=== PATIENT | male | born 1960 | race Caucasian/White ===

== ENCOUNTER 2019-03-11 16:32 | Inpatient (IN) ==
[2019-03-11 17:06] LABS: BASO# 0.02 X1000 (0.0-0.2); BASO% 0.2 % (0.0-0.8); EOS# 0.02 X1000 (0.0-0.7); EOS% 0.2 % (0.0-10.0); HEMATOCRIT 48.2 % (42.0-52.0); HEMOGLOBIN 15.4 g/dL (14.0-18.0); IMM GRAN# 0.03 X1000 (0.0-0.04); IMM GRAN% 0.2 % (0.0-0.5); LYMPH# 1.73 X1000 (1.2-3.4); LYMPH% 14.4 % (20.5-51.1); MCH 29.7 PG (27-31); MCV 93.1 FL (81-99); MONO# 1.29 X1000 (0.11-0.59); MONO% 10.7 % (1.7-9.3); MPV 11.4 FL (7.4-10.4); NEUT# 8.92 X1000 (1.4-6.5); NEUT% 74.3 % (42.2-75.2); PLT 208 X1000 (130-400); RBC 5.18 XMIL (4.7-6.1); RDW 13.4 % (11.5-14.5); WBC 12.01 X1000 (4.8-10.8)
[2019-03-11 17:12] LABS: I-STAT BE 1 mmoll (-2-3); I-STAT GLUCOSE 98 mg/dL (70-105); I-STAT HEMOGLOBIN 15.6 g/dL (11.5-17.5); I-STAT K 3.4 mmoll (3.5-4.9); I-STAT SODIUM 133 mmoll (138-146); I-STAT TCO2 25 mmoll (23-27); I-STAT pH 7.506 (7.350-7.450)
[2019-03-11 17:15] LABS: HCO3-(ACT) 23.7 mmoll (20.0-26.0); PCO2(98.6) 30 mmHg (35-45); SAMPLE BLOOD; pH(98.6) 7.51 (7.35-7.45)
[2019-03-11 17:16] LABS: ALLEN TEST YES; BLOOD TYPE MIXED ART/VENOUS; MODALITY ROOM AIR; THB 15.6 g/dL (11.5-17.4)
[2019-03-11 17:17] LABS: PO2(98.6) 38 mmHg (60-100)
[2019-03-11 17:18] LABS: AGAP 16; ALBUMIN 4.5 g/dL (3.5-5.0); ALKALINE PHOSPHATASE 79 U/L (32-122); BUN 13 mg/dL (8-22); CALCIUM 9.7 mg/dL (8.8-10.2); CHLORIDE 101 mmol/L (98-107); CK PROFILE 94 U/L (24-204); COSMO 277; CREATININE 0.7 mg/dL (0.7-1.2); ESTIMATED GFR > 60; GLUCOSE 123 mg/dL (70-104); GOT 16 U/L (10-34); GPT 15 U/L (10-44); POTASSIUM 3.7 mmol/L (3.5-5.1); SODIUM 138 mmol/L (136-145); TCO2 22 mmol/L (25-35); TOTAL PROTEIN 6.9 g/dL (6.3-8.3)
[2019-03-11 17:23] LABS: INR 0.9; PROTIME 12.6 Seconds (11.0-16.0)
--- NOTE | 2019-03-11 17:53 | Diag Imaging Result Doc PS360 ---
CHEST-2 VIEWS - 03/11/2019 INDICATION: sob COMPARISON: 03/09/2019 FINDINGS: Stable COPD. No infiltrates or edema. Heart size remains normal. No pneumothorax or pleural effusion. IMPRESSION: COPD. Electronically signed by Juan Hughes 03/11/2019 5:51 PM
[2019-03-11] MEDS ORDERED: SOLU-MEDROL IV ONE (18:03)
[2019-03-11] MEDS ORDERED: DUONEB (A & A) INH ONE (18:03)
[2019-03-11] MEDS ORDERED: PULMICORT INH ONE (18:03)
[2019-03-11] MEDS ORDERED: ROCEPHIN 1 GM in NS 50 ML IV ONE (18:04)
[2019-03-11] MEDS ORDERED: NICODERM PATCH TD ONE (18:38)
--- NOTE | 2019-03-11 18:52 | EKG Report ---
Test Performed on : 03/11/2019 6:44:47 PM Test Reason : sob Blood Pressure : / mmHG Vent. Rate : 103 BPM Atrial Rate : 103 BPM P-R Int : 126 ms QRS Dur : 098 ms QT Int : 334 ms P-R-T Axes : 115 085 045 degrees QTc Int : 437 ms Sinus tachycardia. Incomplete right bundle branch block Nonspecific ST abnormality Abnormal ECG When compared with ECG of 09-MAR-2019 12:32, (Unconfirmed) No significant change was found Unconfirmed Result
--- NOTE | 2019-03-11 18:56 | PROVIDER DOCUMENTATION ---
This chart was entered by Shivani Jean Scribe, acting as scribe for Sarah Villagomez MD. HPI-Respiratory General - General Source: patient - History of Present Illness-Resp Severity in ED: reports: moderate Onset/Duration: reports: gradual, 2 days ago Timing: reports: still present, constant, getting worse Cough Quality/Degree: reports: severe Episode Frequency: frequent episodes (seen in ED several times) Current Respiratory Medication Therapy: Initiated albuterol/atrovent inhale Modifying Factors: worse with: exertion, coughing Associated Symptoms: reports: cough, fever/chills, muscle/bodyaches, shortness of breath, wheezing Similar Symptoms Previously?: Yes (2 days ago in ED ) Recently seen or treated by another doctor?: Yes <Sarah Villagomez - Last Filed: 03/11/19 18:56> <Ha Lam - Last Filed: 03/11/19 19:27> - General Chief Complaint: Shortness of Breath Stated Complaint: RECHECK - COPD Time Seen by Provider: 03/11/19 16:41 Allergies/Adverse Reactions: Patient Allergies Allergy/AdvReac Type Severity Reaction Status Date / Time No Known Allergies Allergy Verified 03/11/19 16:54 Home Medications: Home Medication List Medication Instructions Recorded Confirmed Last Taken Type Albuterol Sulfate Inhaler 2 puff INH Q6H PRN PRN #1 inhaler 06/07/17 03/11/19 12/08/18 Rx [Ventolin Hfa] Aspirin 325 mg PO DAILY 03/09/19 03/11/19 03/11/19 History - History of Present Illness-Resp Nature of Presenting Problem: Pt is a 58 yowm who came into the Ed with SOB, fever and chills. Pt was seen in the ED Friday, did not want to be admitted but now symptoms have gotten worse and he feels he needs to be admitted. Pt is alert, breathing rapidly and paco ears in mild distress. (Sarah Villagomez) Review of Systems - Adult - REVIEW OF SYSTEMS - ADULT Constitutional: reports: no symptoms reported, chills, fever Eyes: reports: no symptoms reported Ears, Nose, Mouth & Throat: reports: no symptoms reported Cardiovascular: reports: no symptoms reported, see HPI. denies: syncope Respiratory: reports: no symptoms reported, cough, shortness of breath, wheezing , other (rapid breathing) Gastrointestinal: denies: abdominal pain, nausea, vomiting Genitourinary: reports: no symptoms reported Musculoskeletal: reports: no symptoms reported Integumentary: reports: no symptoms reported Neurological: denies: dizziness/vertigo, syncope Psychiatric: reports: no symptoms reported Endocrine: reports: no symptoms reported Hematologic/Lymphatic: reports: no symptoms reported Allergic/Immunologic: reports: no symptoms reported All Other Systems: Reviewed and Negative <Sarah Villagomez - Last Filed: 03/11/19 18:56> Past History - Adult - PAST MEDICAL HISTORY-ADULT Review of Records: reports: Old Records Reviewed, Nursing Assessment Review, Medications Reviewed, Social history reviewed & non-contributory. Major Childhood Illnesses: reports: denies history Cardiovascular: denies: A-Fib, angina, aortic disease, blood clots, CAD, CHF, HTN, heart valve problem, hyperlipidemia, [place], PAD, palpitations, pacemaker Respiratory: reports: asthma, COPD Gastrointestinal: reports: GI bleed. denies: diverticulosis, GERD, ulcer Genitourinary: reports: denies history Musculoskeletal: reports: neck/back injury Neurological: denies: CVA, dementia Psychiatric: reports: denies history Endocrine/Immune: reports: denies history Other Conditions: reports: denies history - PRIOR SURGERIES/PROCEDURES Surgical/Procedure History: reports: none - IMMUNIZATION STATUS Childhood Immunizations: See Nurse Assessment Flu Vaccine: See Nurse Assessment - FAMILY HISTORY Family History: CAD under 55yo - SOCIAL HISTORY Smoking: cigarettes, greater than 1 pack/day Provider spent 3-5 mins advising pt. on dangers of tobacco.: Discussed manners to quit use, and f/u contacts for add'l counseling. Substance Use: denies Living Situation: alone <Sarah Villagomez - Last Filed: 03/11/19 18:56> Physical Exam-General - PHYSICAL EXAM-ADULT Initial Vital Signs Reviewed: Yes (HR 112 O2 93 RA) - CONSTITUTIONAL General Appearance: alert, mild distress - EYES Eyes: PERRL/EOMI - HEAD, EARS, NOSE, MOUTH & THROAT HENMT: moist mucous membranes - NECK Neck: full range of motion - RESPIRATORY Respiratory: respiratory distress, accessory muscle use, wheezing, retractions, increased rate - CARDIOVASCULAR Cardiovascular: normal peripheral pulses, tachycardia - GASTROINTESTINAL (ABDOMEN) Abdominal Exam: non tender, soft - MUSCULOSKELETAL Back Exam: no CVA tenderness, no vertebral tenderness Extremity: normal range of motion, normal gait - SKIN Integumentary: normal turgor, warm/dry - PSYCHIATRIC Psych/Mental Status: normal mood/affect, normal thought content, normal thought process, oriented x 3 <HernandoSarah - Last Filed: 03/11/19 18:56> Progress - PLAN OF CARE/RESULTS Result Diagrams: 03/11/19 16:45 03/11/19 16:45 - CHANGE OF SHIFT REPORT (ED Provider) 1 Report Given and Care Transferred to:: Dr Lam Time of Transfer: 18:56 Items Pending: Other (hospitalist to call back) <HernandoAnastacy Escobedo - Last Filed: 03/11/19 18:56> - PLAN OF CARE/RESULTS Result Diagrams: 03/11/19 16:45 03/11/19 16:45 - REASSESSMENT Reassessment #1 Time Reassessed: 09:15 Status: unchanged Reassessment Comment: continues to wheeze - XRAY 1 XRAY Study: Chest XRAY Interpretation: COPD - CONSULTS/PCP/HOSPITALIST Notification #1 *Consult/PCP/Hospitalist*: Dr. Blankenship, Hospitalist building construction foreman Time Discussed: 19:25 Consult Disposition: Admit <Ha Lam - Last Filed: 03/11/19 19:27> - PLAN OF CARE/RESULTS Progress/Plan/Lab Results: Vital Signs - 8 hr 03/11/19 16:35 03/11/19 17:00 03/11/19 18:03 Temperature 98.7 F Pulse Rate 112 H 98 H Respiratory Rate 20 29 H Blood Pressure 162/83 144/83 O2 Sat by Pulse Oximetry 93 L 95 96 03/11/19 18:23 Temperature Pulse Rate 95 H Respiratory Rate 26 H Blood Pressure O2 Sat by Pulse Oximetry 96 03/11/19 16:53 - Final Sputum Laboratory Results - last 24 hr 03/11/19 03/11/19 03/11/19 16:40 16:45 16:45 WBC 12.01 H RBC 5.18 Hgb 15.4 Hct 48.2 MCV 93.1 MCH 29.7 MCHC 32.0 L RDW Std Deviation 13.4 Plt Count 208 MPV 11.4 H Immature Gran % (Auto) 0.2 Neut % (Auto) 74.3 Lymph % (Auto) 14.4 L Lares % (Auto) 10.7 H Eos % (Auto) 0.2 Baso % (Auto) 0.2 Immature Gran # (Auto) 0.03 Neut # (Auto) 8.92 H Lymph # (Auto) 1.73 Lares # (Auto) 1.29 H Eos # (Auto) 0.02 Baso # (Auto) 0.02 PT INR PTT (Actin FS) Specimen Type Sample Site POC pH pH POC pCO2 pCO2 POC pO2 pO2 POC HCO3 HCO3 POC Total CO2 Base Excess POC Base Excess POC O2 Saturation ABG O2 Saturation Carlos Test Total Hemoglobin POC Hemoglobin POC Hematocrit POC Sodium POC Potassium POC Glucose POC Ioniz Calcium Blood Gas Modality FiO2 % Sodium 138 Potassium 3.7 Chloride 101 Carbon Dioxide 22 L Anion Gap 16 BUN 13 Creatinine 0.7 Estimated GFR/1.73 m2 > 60 BUN/Creatinine Ratio 19 Glucose 123 H Calculated Osmolality 277 Calcium 9.7 Total Bilirubin 1.30 H AST 16 ALT 15 Alkaline Phosphatase 79 Creatine Kinase 94 Troponin T Liv-V-Amlcdaxowls Pept Total Protein 6.9 Albumin 4.5 Globulin 2.0 Albumin/Globulin Ratio 2.0 Plasma Lactate 1.7 03/11/19 03/11/19 03/11/19 16:45 16:45 16:45 WBC RBC Hgb Hct MCV MCH MCHC RDW Std Deviation Plt Count MPV Immature Gran % (Auto) Neut % (Auto) Lymph % (Auto) Lares % (Auto) Eos % (Auto) Baso % (Auto) Immature Gran # (Auto) Neut # (Auto) Lymph # (Auto) Lares # (Auto) Eos # (Auto) Baso # (Auto) PT 12.6 INR 0.90 PTT (Actin FS) 28.0 Specimen Type Sample Site POC pH pH POC pCO2 pCO2 POC pO2 pO2 POC HCO3 HCO3 POC Total CO2 Base Excess POC Base Excess POC O2 Saturation ABG O2 Saturation Carlos Test Total Hemoglobin POC Hemoglobin POC Hematocrit POC Sodium POC Potassium POC Glucose POC Ioniz Calcium Blood Gas Modality FiO2 % Sodium Potassium Chloride Carbon Dioxide Anion Gap BUN Creatinine Estimated GFR/1.73 m2 BUN/Creatinine Ratio Glucose Calculated Osmolality Calcium Total Bilirubin AST ALT Alkaline Phosphatase Creatine Kinase Troponin T < 0.010 Trg-[id number]-Gmcvvrdqwmx Pept 86 Total Protein Albumin Globulin Albumin/Globulin Ratio Plasma Lactate 03/11/19 03/11/19 16:55 17:07 WBC RBC Hgb Hct MCV MCH MCHC RDW Std Deviation Plt Count MPV Immature Gran % (Auto) Neut % (Auto) Lymph % (Auto) Lares % (Auto) Eos % (Auto) Baso % (Auto) Immature Gran # (Auto) Neut # (Auto) Lymph # (Auto) Lares # (Auto) Eos # (Auto) Baso # (Auto) PT INR PTT (Actin FS) Specimen Type MIXED ART/VENOUS Sample Site L RADIAL POC pH 7.506 H pH 7.51 H POC pCO2 29.9 L pCO2 30 L POC pO2 38.0 L* pO2 38 L* POC HCO3 23.7 HCO3 23.7 POC Total CO2 25 Base Excess 1.0 POC Base Excess 1 POC O2 Saturation 79 L ABG O2 Saturation 79.0 L Carlos Test YES Total Hemoglobin 15.6 POC Hemoglobin 15.6 POC Hematocrit 46 POC Sodium 133 L POC Potassium 3.4 L POC Glucose 98 POC Ioniz Calcium 1.25 Blood Gas Modality ROOM AIR FiO2 % 21.0 Sodium Potassium Chloride Carbon Dioxide Anion Gap BUN Creatinine Estimated GFR/1.73 m2 BUN/Creatinine Ratio Glucose Calculated Osmolality Calcium Total Bilirubin AST ALT Alkaline Phosphatase Creatine Kinase Troponin T Pdz-E-Jkehtpiypyr Pept Total Protein Albumin Globulin Albumin/Globulin Ratio Plasma Lactate Orders Category Date Time Status Cardiac Monitoring DIRECTED Care 03/11/19 16:47 Active Notify MD of + Sepsis Screen NOW Care 03/11/19 16:49 Active Notify Physician As Ordered Care 03/11/19 16:49 Active Oxygen Therapy- ED Nursing DIRECTED Care 03/11/19 16:47 Active Saline Loc NOW Care 03/11/19 16:47 Active CHEST-2 VIEWS [RAD] Stat Exams 03/11/19 16:47 Completed ABG [RESP] Routine Lab 03/11/19 16:55 Completed BLOOD CULTURE [BLDCUL] Stat Lab 03/11/19 16:45 Ordered CBC WITH ELECTRONIC DIFF [HEME] Stat Lab 03/11/19 16:45 Completed CK PROFILE [SP CHEM] Stat Lab 03/11/19 16:45 Completed COMPREHENSIVE METABOLIC PANEL [CHEM] Stat Lab 03/11/19 16:45 Completed I-STAT 8 [RESP] Routine Lab 03/11/19 17:07 Completed LACTATE, PLASMA [CHEM] Lab 03/11/19 16:40 Completed LACTATE, PLASMA [CHEM] Lab 03/11/19 20:00 Uncollected LACTATE, PLASMA [CHEM] Lab 03/11/19 23:00 Uncollected PRO B-NATRIURETIC PEPTIDE Stat Lab 03/11/19 16:45 Completed PROTIME WITH INR [COAG] Stat Lab 03/11/19 16:45 Completed PTT [COAG] Stat Lab 03/11/19 16:45 Completed SPUTUM CULTURE WITH GRAM STAIN [RM] Routine Lab 03/11/19 16:53 Results TROPONIN T Stat Lab 03/11/19 16:45 Completed Albuterol 2.5MG/Ipratrop 0.5MG [Duoneb (A & A)] Med 03/11/19 18:03 Discontinued 3 ml INH NOW ONE Budesonide [Pulmicort] Med 03/11/19 18:03 Discontinued 0.5 mg INH NOW ONE CefTRIAXONE [Rocephin] 1 gm Med 03/11/19 18:04 Discontinued 0.9% Sodium Chloride Inj [Ns] 50 ml IV NOW Methylprednisolone Sod Succ [Solu-Medrol] Med 03/11/19 18:03 Discontinued 125 mg IV NOW ONE Nicotine Patch [Nicoderm Patch] Med 03/11/19 18:38 Discontinued 21 mg TD NOW ONE Aerosol Treatments Routine Oth 03/11/19 18:03 Completed Aerosol Treatments Routine Oth 03/11/19 18:03 Completed Aerosol Treatments Stat Oth 03/11/19 18:03 Completed Aerosol Treatments Stat Oth 03/11/19 18:03 Completed CP/SOB/Palp >45 yrs of Age Stat Oth 03/11/19 16:47 Ordered EKG [EKG] Stat Ther 03/11/19 16:47 Draft Departure - Departure Date of Disposition Decision: 03/11/19 Time of Disposition Decision: 18:47 Certified Medical Emergency: Emergent - Critical Care Note This patient required my direct & personal management of CC.: No <Sarah Villagomez - Last Filed: 03/11/19 18:56> - Departure Certified Medical Emergency: Emergent - Critical Care Note This patient required my direct & personal management of CC.: No <Ha Lam - Last Filed: 03/11/19 19:27> - Departure DIAGNOSIS: COPD exacerbation Disposition: ADMITTED INPATIENT 09 Condition: Good Referrals and Follow-Ups: None,PCP [Primary Care Provider] - Attestation - Physician/ PACO Attestation Patient care was provided by Advanced Practice Provider:: No The physician spent face to face time with patient:: Yes Advanced Practice Provider documentation review:: Supervising physician onsite and consulted in the evaluation and care of this patient. The physician did have a face to face encounter with the patient. <Sarah Villagomez - Last Filed: 03/11/19 18:56> - Physician/ PACO Attestation Patient care was provided by Advanced Practice Provider:: No The physician spent face to face time with patient:: Yes Advanced Practice Provider documentation review:: Supervising physician onsite and consulted in the evaluation and care of this patient. The physician did have a face to face encounter with the patient. <Ha Lam - Last Filed: 03/11/19 19:27> This chart was documented by the indicated scribe, (Shivani Jean, Zakia) and accurately reflects the services I performed and decisions made by Hernando harding Mai Huu, MD, as attested by the provider's signature.
[2019-03-11] MEDS: DUONEB (A & A) INH SCH ×2 (19:56→22:55)
[2019-03-11] MEDS ORDERED: TYLENOL PO PRN (19:57)
[2019-03-11 20:11] LABS: INFLUENZA A NEGATIVE (NEGATIVE); INFLUENZA B NEGATIVE (NEGATIVE)
[2019-03-12] MEDS: SOLU-MEDROL IV SCH ×5 (01:21→23:10)
[2019-03-12] MEDS: DUONEB (A & A) INH SCH ×6 (03:06→22:29)
[2019-03-12] MEDS ORDERED: FLU VACCINE IM ONE (09:00)
[2019-03-12] MEDS ORDERED: PNEUMOVAX 23 IM ONE (09:00)
[2019-03-12 09:50] LABS: BASO# 0.01 X1000 (0.0-0.2); BASO% 0.1 % (0.0-0.8); HEMATOCRIT 46.1 % (42.0-52.0); IMM GRAN# 0.01 X1000 (0.0-0.04); IMM GRAN% 0.1 % (0.0-0.5); LYMPH# 0.98 X1000 (1.2-3.4); LYMPH% 9.6 % (20.5-51.1); MCH 30.1 PG (27-31); MCHC 32.5 g/dL (33-37); MCV 92.6 FL (81-99); MONO# 0.22 X1000 (0.11-0.59); MONO% 2.1 % (1.7-9.3); MPV 11.2 FL (7.4-10.4); NEUT# 9.04 X1000 (1.4-6.5); NEUT% 88.1 % (42.2-75.2); PLT 209 X1000 (130-400); RBC 4.98 XMIL (4.7-6.1); RDW 13.1 % (11.5-14.5); WBC 10.26 X1000 (4.8-10.8)
[2019-03-12] MEDS ORDERED: ZOFRAN IV PRN (09:51)
[2019-03-12] MEDS ORDERED: SALINE LOCK IV FLUID XX ONE (09:51)
[2019-03-12 10:10] LABS: AGAP 14; BUN 17 mg/dL (8-22); CALCIUM 9.5 mg/dL (8.8-10.2); CHLORIDE 100 mmol/L (98-107); COSMO 283; CREATININE 0.6 mg/dL (0.7-1.2); ESTIMATED GFR > 60; GLUCOSE 173 mg/dL (70-104); POTASSIUM 3.6 mmol/L (3.5-5.1); SODIUM 139 mmol/L (136-145); TCO2 25 mmol/L (25-35)
[2019-03-12] MEDS: LOVENOX SUBQ SCH (10:25)
[2019-03-12 10:50] LABS: LYMPHS 11 % (21-51); MONO 3 % (1-9); SEGS 86 % (42-75)
--- NOTE | 2019-03-12 17:32 | HISTORY AND PHYSICAL ---
PRIMARY CARE PROVIDER: No one. CHIEF COMPLAINT: Shortness of breath. HISTORY OF PRESENT ILLNESS: Mr. Ambrocio Jones is a 58-year-old male with a medical history of COPD since 2010. He is not on any home maintenance medications for this. Friday, started having some green phlegm, started developing some chills, wheezing mostly when he was lying down, decreased appetite, decreased sleep. He presented here on Friday with these complaints, was pending admission but requested not to be admitted. He was also hypoxic requiring some oxygen at that time. He had an appointment with [employer] Security on Friday and then re- presented again on night, last night and was admitted overnight. He is here for COPD exacerbation, mild hypoxia with it requiring some oxygen. We will get a sputum if we can if he can cough anything up as he does have complaints of green phlegm. He has expiratory wheezes noted on auscultation. PAST MEDICAL HISTORY: 1. COPD since 2010. No home medications for this. 2. Chronic back pain. 3. Hypertension but no home medications for that either. SURGICAL HISTORY: None. SOCIAL HISTORY: 1 to 2 pack per day smoker since the age of 13. However, he most recently has been trying to wean himself off of it. He is trying to quit smoking, has not drank alcohol in 11 years. Smokes marijuana about once a month. No other illicit drug use. He has a common-law, 2 children. 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 FAMILY HISTORY: Mother no medical conditions. Father had emphysema and liver disease from alcoholism. ALLERGIES: No known drug allergies. HOME MEDICATIONS: 1. He has albuterol or Ventolin as a rescue inhaler 2 puffs inhaled every 6 hours p.r.n. 2. Aspirin 325 mg p.o. daily. REVIEW OF SYSTEMS: Fourteen point review of systems are complete and all were negative except for those mentioned above in the HPI. PHYSICAL EXAMINATION: VITAL SIGNS: Temperature 97.8 degrees, heart rate 88, respiratory rate 18, blood pressure 144/78, O2 saturation 98% on 2 L nasal cannula. GENERAL: Mr. Ambrocio Jones Is a 58-year-old male who is in no acute distress. He is able to answer questions appropriately. HEENT: Atraumatic, normocephalic. Pupils equal, round, reactive to light. Extraocular movements intact. Mucous membranes are moist. A very large delaney. NECK: Trachea midline. CARDIOVASCULAR: S1, S2. Regular rate and rhythm. No rubs, gallops, murmurs. No lower extremity edema. +2 dorsalis and radial pulses. Negative JVD or carotid bruits. PULMONARY: Inspiratory wheezes noted anterior and posteriorly in all lung gil. No accessory muscle use or work of breathing noted. He is tolerating nasal cannula. GASTROINTESTINAL: Abdomen soft, nontender, nondistended. Positive bowel sounds x4. EXTREMITIES: Moves all extremities equally. Full range of motion. NEUROLOGIC: A and O x3. Follows commands. Sensory is intact. SKIN: Warm, dry, intact. LABORATORY DATA: White blood cells 10,000, hemoglobin 15, hematocrit 46, platelet count 209,000. ABGs mixed arterial venous pH 7.51, pCO2 30, PO2 38, bicarbonate 23, base excess 1, saturation 79% this is on room air. Sodium 139, potassium 3.6, BUN 17, creatinine 0.6, glucose 173, calcium 9.5, bilirubin is 1.03, AST 16, ALT 15, CK 94, troponin less than 0.01. ProBNP is 86. Albumin 4.5, lactate 1.0, so it was 1.7 and 0.6 and 1.0. Negative for the flu. IMAGING: Chest x-ray: COPD. EKG: Sinus tachycardia rate 103. ASSESSMENT/PLAN: 1. Chronic obstructive pulmonary disease exacerbation, possible bronchitis or sinus infection. He is coughing up green phlegm and he did have an elevated white blood cell count yesterday on presentation to the ER. He will have antibiotic coverage, IV steroids, nebulizers. He will probably need something more maintenance dosing once he gets discharged, Rocephin is his antibiotic. 2. Hypertension. Blood pressure is okay 130 to 140s. No medications for that at this time. 3. Chronic back pain. He can have Tylenol. 4. Deep venous thrombosis prophylaxis. Lovenox. 5. Tobacco abuse cessation discussed. Nicotine patch started. Dictated by VIRAJ Donaldson for Valentino Do MD cc: VIRAJ Donaldson MD
[2019-03-12] MEDS ORDERED: ROCEPHIN 1 GM in NS 50 ML IV SCH (18:00)
[2019-03-13] MEDS: DUONEB (A & A) INH SCH ×3 (02:50→11:01)
[2019-03-13] MEDS: SOLU-MEDROL IV SCH (05:08)
[2019-03-13 06:04] LABS: BASO# 0.01 X1000 (0.0-0.2); BASO% 0.1 % (0.0-0.8); HEMATOCRIT 46.6 % (42.0-52.0); HEMOGLOBIN 14.9 g/dL (14.0-18.0); IMM GRAN# 0.04 X1000 (0.0-0.04); IMM GRAN% 0.3 % (0.0-0.5); LYMPH# 1.29 X1000 (1.2-3.4); LYMPH% 8.3 % (20.5-51.1); MCH 29.7 PG (27-31); MONO# 0.73 X1000 (0.11-0.59); MONO% 4.7 % (1.7-9.3); MPV 11.7 FL (7.4-10.4); NEUT% 86.6 % (42.2-75.2); PLT 242 X1000 (130-400); RBC 5.01 XMIL (4.7-6.1); RDW 13.2 % (11.5-14.5); WBC 15.57 X1000 (4.8-10.8)
[2019-03-13 06:18] LABS: AGAP 16; BUN 22 mg/dL (8-22); CALCIUM 9.7 mg/dL (8.8-10.2); CHLORIDE 101 mmol/L (98-107); COSMO 284; CREATININE 0.8 mg/dL (0.7-1.2); ESTIMATED GFR > 60; GLUCOSE 184 mg/dL (70-104); POTASSIUM 3.6 mmol/L (3.5-5.1); SODIUM 138 mmol/L (136-145); TCO2 21 mmol/L (25-35)
[2019-03-13] MEDS ORDERED: PROTONIX PO SCH (07:00)
[2019-03-13 07:03] LABS: BANDS 2 % (0-1); LYMPHS 5 % (21-51); MONO 3 % (1-9); SEGS 89 % (42-75)
[2019-03-13 08:08] VITALS: BP 136/77
[2019-03-13] MEDS ORDERED: NICODERM PATCH TD SCH (09:00)
[2019-03-13] MEDS: LOVENOX SUBQ SCH (09:03)
--- NOTE | 2019-03-14 07:35 | DISCHARGE SUMMARY ---
ADMISSION DATE: 03/11/2019 DISCHARGE DATE: 03/13/2019 ADMISSION DIAGNOSES: 1. Chronic obstructive pulmonary disease exacerbation, possible bronchitis or sinus infection. 2. Hypertension. 3. Chronic back pain. 4. Tobacco abuse. DISCHARGE DIAGNOSES: 1. Chronic obstructive pulmonary disease exacerbation, possible bronchitis or sinus infection. 2. Hypertension. 3. Chronic back pain. 4. Tobacco abuse. CONSULTATIONS: None. SURGERIES AND PROCEDURES: None. HOSPITAL COURSE: Mr. Ambrocio Jones is a 58-year-old male with a medical history of COPD since 2010, without any home maintenance medications for this. He started having some green phlegm, started developing chills, wheezing, mostly when he was lying down, decreased appetite, decreased sleep. Presented here on Friday with those complaints, was pending admission, but requested not to be admitted as he had had an appointment the next morning with [facility]. He was noted to be mildly hypoxic during this time, but with breathing treatments, he improved and was discharged. He represented on 03/12/2019, which was Friday, with continued complaints. Actually, I believe that he may have even presented on , but with these same complaints, he was admitted for COPD exacerbation, mild hypoxia with requiring some oxygen. Nebulizers initiated, antibiotics initiated, and he improved and is stable for discharge. DISCHARGE VITAL SIGNS: Temperature 97.6 degrees, heart rate 77, respiratory rate 18, blood pressure 136/77, O2 saturation 96% on 2 L. He may or may not be going home with oxygen. DISCHARGE LABORATORY DATA: White blood cells 15,000, hemoglobin 14, hematocrit 46, platelet count 242,000. Sodium 138, potassium 3.6, BUN 22, creatinine 0.8, glucose 184, calcium 9.7. PERTINENT IMAGING: Chest x-ray: COPD. EKG: Sinus tachycardia, rate 103. DISCHARGE MEDICATIONS: 1. Aspirin 325 mg p.o. daily. 2. Albuterol/Atrovent every 4 hours p.r.n. 3. Levaquin 750 mg p.o. daily for 7 days. 4. Medrol Dosepak. 5. Nicotine patch 21 mg transdermal daily. 6. Protonix 40 mg p.o. daily. 7. Rescue inhaler albuterol 2 puffs inhaled every 6 hours p.r.n. DISCHARGE DIET: Regular. DISCHARGE ACTIVITY: As tolerated. PHYSICIAN FOLLOWUPS: He needs to find a primary care provider and follow up. DISCHARGE INSTRUCTIONS: If your condition changes, contact physician and/or return to the emergency department. Changes may include, but are not limited to, shortness of breath, increased fatigue, excessive bleeding, unexplained weight loss or gain, unmanageable pain, signs or symptoms of infection. DISCHARGE DISPOSITION: Home. Dictated by VIRAJ Donaldson for Valentino Do MD Addendum: Patient seen and examined by myself. Agree with VIRAJ note. It reflects my assessment and plan. Patient is being discharged in stable condition. Will be seen by PCP in a week. cc: VIRAJ Donaldson MD MTDD
== END 2019-03-13 12:32 | disposition home or self-care (01) | DRG 192 ==
LOC: P.ED 16:32 → P.MEDSURG 19:59
PROVIDERS: ATTEND Internal Medicine